=== PATIENT | male | born 1940 | race Caucasian/White ===

== ENCOUNTER 2024-06-27 11:26 | Observation (INO) ==
[~2024-06-27 11:26] MED LIST: Lidocaine 2% PF 5 ML VIAL ONE; Midazolam 2 mg/2 ml VIAL 1 mg/ml 2 ml VIAL (2 mg) ONE; Naloxone 0.4 mg VIAL 0.4 mg/ml 1 ml VIAL IV PRN; Propofol 10 MG/ML 20 ML BTL ONE; fentaNYL 100 mcg/2 ml 50 MCG/ML VIAL ONE
[2024-06-27 12:44] LABS: Rapid COVID-19 Molecular Undetected (Undetected)
[2024-06-27] MEDS ORDERED: Ondansetron 4 mg VIAL 2 MG/ML 2 ml VIAL IV PRN (13:40)
[2024-06-27] MEDS ORDERED: Rocuronium 50 mg VIAL 10 mg/ml 5 ml VIAL (50 mg) ONE ×2 (13:52→13:59)
[2024-06-27] MEDS ORDERED: Sterile Water for Inj 10 ML ONE (13:57)
[2024-06-27] MEDS ORDERED: Ondansetron 4 mg VIAL 2 MG/ML 2 ml VIAL ONE (14:43)
[2024-06-27] MEDS ORDERED: Dexamethasone IV 4 MG/ML VIAL 1 ml VIAL ONE (14:43)
[2024-06-27] MEDS ORDERED: Furosemide 20 mg/2 ml IV VIAL ONE (15:10)
[2024-06-27] MEDS ORDERED: Esmolol 10 MG/ML 10 ML (100 mg) IV ONE ×2 (15:41→15:51)
[2024-06-27] MEDS ORDERED: Metoprolol Tartrate 5 mg VIAL 5 ml VIAL (1 mg/ml) ONE (15:41)
[2024-06-27] MEDS ORDERED: fentaNYL 100 mcg/2 ml 50 MCG/ML VIAL ONE (15:55)
[2024-06-27] MEDS: fentaNYL 100 mcg/2 ml 50 MCG/ML VIAL IV PRN (15:55)
[2024-06-27] MEDS ORDERED: Labetalol IV 5 MG/ML 20 ml VIAL ONE (16:07)
[2024-06-27] MEDS: Labetalol IV 5 MG/ML 20 ml VIAL IV PUSH ONE (16:08)
[2024-06-27] MEDS ORDERED: Naloxone 0.4 mg VIAL 0.4 mg/ml 1 ml VIAL IV PRN (16:10)
[2024-06-27] MEDS: Ampicillin ADVAN 2 GM in NS 0.9% 100 ML 100 ML IVPB ONE (18:25)
[2024-06-27] MEDS: Gentamicin ADULT 360 MG in NS 0.9% 100 ml BAG 100 ML IVPB ONE (18:25)
[2024-06-27] MEDS: NS 0.9% 1000 ml BAG 1,000 ML IV SCH (18:30)
[2024-06-27] MEDS: Lactated Ringers 1000 ml BAG 1,000 ML IV SCH (19:05)
[2024-06-27] MEDS: Buffered Lidocaine 1% SYRIN 1 ml INTRADERM ONE (19:06)
[2024-06-27] MEDS: Neomycin/Polym/Bacit TOP OINT 15 GM TOPICAL SCH (22:57)
[2024-06-27] MEDS: Magnesium Hydroxide LIQ 30 ML UDC PO SCH (22:57)
[2024-06-28] MEDS: Influenza Vaccine *TRI* 2024-25* 0.5 ML SYRINGE IM ONE (08:17)
[2024-06-28 10:37] VITALS: BP 140/88
== END 2024-06-28 11:20 | disposition home or self-care (01) ==
LOC: OR 11:26 → SSU 11:26
PROVIDERS: ADMIT Urology; ATTEND Urology